=== PATIENT | male | born 1985 | race African-American/Black ===

== ENCOUNTER 2020-09-24 15:12 | Observation (INO) | payer SELFPAY ==
[2020-09-24] VITALS (24 sets, daily range): BP systolic 129–207; BP diastolic 90–134; PULSE 64–118; RESP 12–31; TEMP 36.6–37.2; O2SAT 96–100; BMI 22.5
--- NOTE | ~2020-09-24 | XR_ITS ---
EXAMINATION: XR chest 1V portable EXAM DATE: 09/24/2020 15:52 INDICATION: Weakness. TECHNIQUE: Portable AP frontal chest x-ray was obtained. There is no prior study for comparison. FINDINGS: The lungs are clear. There are no pleural effusions. The cardiomediastinal silhouette is within normal limits. There is no pneumothorax suspected. The bones and soft tissues are unremarkab le. IMPRESSION: Normal chest x-ray exam. Reviewed, dictated and finalized at location A. IMPRESSION: Normal chest x-ray exam.
--- NOTE | ~2020-09-24 | CT_ITS ---
EXAMINATION: CT abdomen pelvis wo con EXAM DATE: 09/24/2020 17:02 INDICATION: Nausea and vomiting. TECHNIQUE: Spiral CT of the abdomen and pelvis was performed without contrast. Axial, coronal and sag ittal images were reviewed. The dose-length product (DLP) for this examination was 540.78 mGy-cm. T he exposure was tailored according to patient size (auto mA exposure control), and iterative reconstr uction (ASIR) was used as additional dose reduction technique. There is no prior study for compariso n. FINDINGS: There is no nephrolithiasis or hydronephrosis. There is a 1.4 cm left renal cyst. The prost ate is unremarkable. The bladder is unremarkable. The liver, spleen, adrenal glands and pancreas ar e unremarkable. Gallbladder is unremarkable. No biliary obstruction. There is no retroperitoneal o r pelvic lymphadenopathy. The appendix is normal. The stomach and small bowel are unremarkable. There is expected amount of c olonic stool. No free intraperitoneal gas. The heart is normal in size. There are no pericardial or pleural effusions. The lung bases are unremarkable. There are no osteoblastic or osteolytic les ions identified. IMPRESSION: No acute intra-abdominal or pelvic findings. Reviewed, dictated and finalized at location G.
--- NOTE | 2020-09-24 15:16 | ECG_ITS ---
Measurements Intervals [place] Rate: 105 P: 70 CO: 118 QRS: 66 QRSD: 79 T: 64 QT: 336 QTc: 446 Interpretive Statements SINUS TACHYCARDIA WITH SHORT CO INTERVAL POSSIBLE RIGHT ATRIAL ENLARGEMENT LEFT ATRIAL ENLARGEMENT BORDERLINE ECG Electronically Signed On 09-24-2020 21:46:38 CDT by Chacho Jarrell D.O.
--- NOTE | 2020-09-24 15:22 | ED.GENADULT ---
HPI - General Adult General Chief complaint: Unspecified Stated complaint: heroin withdrawl Source: patient, EMS and RN notes reviewed Mode of arrival: EMS Limitations: clinical condition History of Present Illness HPI narrative: Patient is a 35-year-old male who presents per EMS from a hotel where he is staying patient notes that he has not been using heroin for the last 5 days patient has a hospital band stating that he was at a hospital on the second patient lives by himself in a hotel he is refusing to answer all questions but cannot deliberately move and answer questions when he chooses to patient notes generalized aching notes that he has had some vomiting as well as cough and upper respiratory symptoms patient again notes history of IV drug abuse and states that he has not used in the last 5 days Related Data Home Medications Medication Instructions Recorded Confirmed No Home Medications 09/24/20 09/24/20 Allergies Allergy/AdvReac Type Severity Reaction Status Date / Time No Known Allergies Allergy Verified 09/24/20 15:13 Review of Systems Review of Systems: All systems reviewed & are unremarkable except as noted in HPI and below PMFSH Social History Social History (Updated 09/24/20 @ 15:24 by Dennis Maciel PA-C) Substance use type: heroin Gender identity (if verbalized by the patient): Male Exam Narrative: Exam Narrative: GENERAL: Ill-appearing, well-nourished, and in no acute distress. HEAD: Normocephalic, atraumatic. EYES: PERRLA and EOMI. ENT: Nares clear, no rhinorrhea or epistaxis. Mucous membranes moist. CHEST: Clear to auscultation. No respiratory distress. No wheezes rales or rhonchi HEART: Regular rate and rhythm. No murmur heard. Normal peripheral pulses. ABDOMEN: Soft, nontender, nondistended EXTREMITIES: Normal range of motion. No edema. SKIN: Warm, dry, no rash. NEURO: No focal deficits. Alert and oriented x3. Cranial nerves II through XII grossly intact PSYCH: Flat affect Course Course Emergency Course: Patient will be placed in hospital for dehydration he is resting in the room no distress given 2 L in the ER patient clinically appears to be primarily dehydrated no other signs of infection or concerning findings at this time Consultations Consultation #1: Discussed case with hospitalist who has agreed to accept the patient Date: 09/24/20 Time: 17:24 Vital Signs Vital signs: Vital Signs Temperature 98.1 F 09/24/20 15:08 Pulse Rate 111 H 09/24/20 15:08 Respiratory Rate 20 09/24/20 15:08 Blood Pressure 129/114 H 09/24/20 15:08 Pulse Oximetry 100 09/24/20 15:08 Temperature 98.1 F 09/24/20 15:08 Pulse Rate 65 09/24/20 17:10 Respiratory Rate 25 H 09/24/20 17:10 Blood Pressure 207/131 H 09/24/20 17:10 Pulse Oximetry 100 09/24/20 17:10 Medical Decision Making MDM Narrative Medical decision making narrative: Patient presented with what appears to be dehydration notes that he has had some vomiting which could be the possible etiology he is otherwise in the room in no distress and felt appropriate for inpatient therapy for hydration Vital Signs Vital Signs: Vital Signs Temperature 98.1 F 09/24/20 15:08 Pulse Rate 111 H 09/24/20 15:08 Respiratory Rate 20 09/24/20 15:08 Blood Pressure 129/114 H 09/24/20 15:08 Pulse Oximetry 100 09/24/20 15:08 Temperature 98.1 F 09/24/20 15:08 Pulse Rate 65 09/24/20 17:10 Respiratory Rate 25 H 09/24/20 17:10 Blood Pressure 207/131 H 09/24/20 17:10 Pulse Oximetry 100 09/24/20 17:10 Lab Data Result diagrams: 09/24/20 16:17 09/24/20 16:17 Labs: Lab Results 09/24/20 09/24/20 09/24/20 Range/Units 15:30 16:17 16:17 WBC (4.5-10.0) K/mm3 RBC (4.6-6.20) M/mm3 Hgb (14.0-18.0) g/dL Hct (42.0-52.0) % MCV (80-100) fl MCH (26-34) pg MCHC (32-36) g/dl RDW (11.5-14.5) % Plt Count (150-375) k/mm3 MPV
[2020-09-24 15:35] LABS: Alveolar/Arterial O2 Gradient 21.1 mmHg; Base Excess ABG 7.6 mEq/l (+/-2.0); Carboxyhemoglobin 0.3 % THb (0-2.0); Fractional Inspired Oxygen 21 %; HCO3 ABG 30.3 mEq/l (22.0-26.0); Methemoglobin ABG 0.9 %THb (0-1.5); Oxygen Content ABG 27.5 %vol (16.0-22.0); Oxygen Saturation ABG 97.4 % (95.0-100.0); Oxyhemoglobin 95.6 % THb (90.0-100.0); PCO2 ABG 36.2 mmHg (35.0-45.0); PO2 ABG 85.3 mmHg (80.0-100.0); PO2 FiO2 Ratio Arterial Blood 4.06 %; Reduced Hemoglobin 3.2 %THb (0-5.0); Total Hemoglobin 20.5 g/dL (12.0-18.0)
[2020-09-24 15:36] LABS: Device ROOM AIR; Modified Allen's Test Pass; Site Drawn LEFT RADIAL
[2020-09-24] MEDS: SODIUM CHLORIDE 0.9% IV 1,000 ML 999 ML IV CONT (16:27)
[2020-09-24 16:32] LABS: Basophils Percent Auto 0.2 % (0.2-1.2); Hematocrit 59.3 % (42.0-52.0); Immature Granulocyte Absolute 0.05 K/mm3 (0.00-0.031); Immature Granulocyte Percent A 0.4 % (0-0.5); Lymphocytes Absolute Auto 1.47 K/mm3 (0.9-3.2); Lymphocytes Percent Auto 10.4 % (18.3-44.2); Mean Corpuscular HGB Conc 33.7 g/dl (32-36); Mean Corpuscular Hemoglobin 30.9 pg (26-34); Mean Corpuscular Volume 91.5 fl (80-100); Mean Platelet Volume 10.7 fl (7.4-10.4); Monocytes Absolute Auto 1.4 K/mm3 (0.1-0.6); Monocytes Percent Auto 9.7 % (2.6-8.5); Neutrophils Absolute Auto 11.2 K/mm3 (1.3-6.7); Neutrophils Percent Auto 79.3 % (45.5-73.1); Platelet Count Result 326 k/mm3 (150-375); Red Blood Count 6.48 M/mm3 (4.6-6.20); Red Cell Distribution Width 13.2 % (11.5-14.5); White Blood Count 14.1 K/mm3 (4.5-10.0)
[2020-09-24 16:35] LABS: Add Urine Microscopic? YES; Appearance Urine Clear (Clear); Bilirubin Urine Negative (Negative); Blood Urine Negative (Negative); Color Urine Yellow (Yellow); Glucose Urine UA Negative (Negative); Ketones Urine Negative (Negative); Leukocyte Esterase Ur Negative LEU/UL (Negative); Mucus Urine Rare /lpf; Nitrate Urine Negative (Negative); Protein Urine 2+ mg/dL (Negative); RBC Urine 0-2 /hpf (0-2); Squamous Epithelial Cell Urine Rare /hpf (Few); Urobilinogen Urine Negative mg/dL (<2.0); WBC Urine 0-3 /hpf
[2020-09-24 16:41] LABS: Prothrombin Time 13.3 Seconds (11.1-14.7)
[2020-09-24 16:42] LABS: Lactic Acid Reflex 2.2 mmol/L (0.7-2.1)
[2020-09-24 16:42] LABS: Partial Thromboplastin Time 30.6 SECONDS (22.3-36.8)
[2020-09-24 16:43] LABS: Alanine Aminotransferase 37 U/L (4-50); Alkaline Phosphatase 103 U/L (38-126); Anion Gap 16 mmol/L (8-16); Aspartate Amino Transferase 44 U/L (17-59); Bilirubin,Total 1.5 mg/dL (0.2-1.3); Blood Urea Nitrogen 55 mg/dL (9-20); CRP < 0.5 mg/dL (<1.0); Calcium 10.2 mg/dL (8.4-10.2); Carbon Dioxide 29 mmol/L (22-30); Chloride 89 mmol/L (98-107); Creatine Kinase 370 U/L (55-170); Estimated CRCL calculation 54 ml/min; Estimated Glomerular Filt Rate 47; Glucose 152 mg/dL (75-110); Lipase 43 U/L (23-300); Magnesium 2.7 mg/dL (1.6-2.3); Phosphorus 5.4 mg/dL (2.5-4.5); Potassium 4.1 mmol/L (3.4-5.0); Sodium 134 mmol/L (137-145)
[2020-09-24 16:51] LABS: Amphetamine Screen Urine Negative (Negative); Barbiturate Screen Urine Negative (Negative); Benzodiazepines Screen Urine Negative (Negative); Cannabinoid Screen Urine Negative (Negative); Cocaine Screen Urine Negative (Negative); Methadone Screen Urine Negative (Negative); Opiate Screen Urine Negative (Negative); Phencyclidine Screen Urine Negative (Negative)
[2020-09-24] MEDS: LACTATED RINGERS 1,000 ML 999 ML IV CONT (17:09)
[2020-09-24] MEDS: PANTOPRAZOLE SODIUM IV 40 MG VIAL IV PUSH (17:09)
[2020-09-24] MEDS: hydrALAZINE HCL 20 MG/ML VIAL 10 MG IV PUSH (17:10)
--- NOTE | 2020-09-24 19:08 | PC.NURSE ---
assumed care of pt at this time. Report from RINA Pugh. Keaton attempted to call report on Patient, floor states to wait until 15 after 7 for report.
[2020-09-24 19:29] LABS: Reflex Lactic Acid Yes or No Add Lactic
--- NOTE | 2020-09-24 19:58 | ADMGEN ---
This patient, Satnam Cordova, was admitted to Medical Room 240-01. Patient/family oriented to hospital policies and general routines including ID bracelet, bed and alarms, visiting hours, pain management, procedures, bathroom and other care routines, personal items, smoking policy, room service/diet, and visiting hours. Information on how to activate the Rapid Response Team has been discussed. Patient/Family are encouraged to report perceived risks to care and to ask questions if they do not understand what they are told or what they should do.
[2020-09-24] MEDS: LACTATED RINGERS 1,000 ML 125 ML IV CONT (20:43)
--- NOTE | 2020-09-24 20:49 | PM.IMHP ---
H&P: HPI History of Present Illness Date/Time: 09/24/20 20:49Thiyana is a 35-year-old male patient who has a history of heroin use. The patient is homeless and staying in hotel. The patient stated that he has been trying to overdose on heroin and he wants to commit suicide and he wants to . The patient is suicidal. EMS was called to the hotel with the patient was staying because he has been staying in his hotel and not answering questions. The patient has nausea and vomiting. He stated the last time he used heroin was last Friday. His white counts noted to be 14.1. Hemoglobin 20.0 hematocrit 59.3. His pH is 7.540. His lactic was 2.2 it is now 1.0. Magnesium 2.7. Phosphorus 5.4. Total bilirubin 1.5. Glucose 152. Creatinine 1.7. His tox screen was all negative. The patient was given IV fluids and Apresoline as well as Protonix. The patient is admitted to medical-surgical observation however the patient admitted that he was trying to commit suicide and wants to harm himself. So will have to move him to the intensive care unit in place him on suicide watch. The patient is being admitted to observation on the date of service of 09/24/2020. Chief Complaint: heroin overdose Review of Systems Review of Systems: All systems reviewed & are unremarkable except as noted in HPI and below Constitutional: Constitutional: Reports as per HPI and Reports no additional constitutional complaints Eyes: Eyes: Reports as per HPI and Reports no additional eye complaints ENT: Reports system reviewed and no additional complaints, except as documented and Reports Normal hearing present Cardiovascular: Cardiovascular: Reports no additional cardiovascular complaints Respiratory: Respiratory: Reports no additional respiratory complaints and Reports no additional respiratory complaints Gastrointestinal: Gastrointestinal: Reports as per HPI and Reports no additional gastrointestinal complaints Musculoskeletal: Musculoskeletal: Reports no additional musculoskeletal complaints Integumentary/Breasts: Skin/Breast: Reports system reviewed and no additional complaints, except as docu and Reports as per HPI Neurologic: Reports system reviewed and no additional complaints, except as documented, Reports as per HPI and Reports Normal hearing present Psychiatric: Psychiatric: Reports no additional psychiatric complaints and Reports as per HPI Endocrine: Endocrine: Reports no additional endocrine complaints Hematologic/Lymphatic: Hematologic/Lymphatic: Reports no additional hematologic/lymphatic complaints Allergic/Immunologic: Allergic/Immunologic: Reports no additional allergic/immunologic complaints [facility] Past Medical History Medical History (Updated 09/24/20 @ 21:06 by Marcela Chin NP) Heroin use Surgical History Surgical History (Updated 09/24/20 @ 21:01 by Marcela Chin NP) No pertinent past surgical history Family History Family History (Updated 09/24/20 @ 20:59 by Marcela Chin NP) Unknown Family history unknown Social History Social History (Updated 09/24/20 @ 21:03 by Marcela Chin NP) Social History: the patient told me that he lives home alone. he toes me that he has no children. He is a full code. He states that he has no family. Smoking packs per day: 1 Smoking cigarettes per day: 20.0 Smoking status: Current every day smoker Tobacco type: cigarettes Substance use: never Substance use type: other Other substance usage details: FENTANYL Last use: 5 DAYS AGO Gender identity (if verbalized by the patient): Male Spiritual care concerns: No Meds Home Medications and Allergies Home Medications Medication Instructions Recorded Confirmed Type No Home Medications 09/24/20 09/24/20 History Allergies Allergy/AdvReac Type Severity Reaction Status Date / Time No Known Allergies Allergy Verified 09/24/20 15:13 Vital Signs Vital Signs - 24 hr 09/24/20 15:08
--- NOTE | 2020-09-24 20:52 | PC.NURSE ---
2034 informed sandra trinidad php lamp developer of high risk on aquilla suicide risk assessment. states she is on her way to see patient. nursing underground supervisor informed.
--- NOTE | 2020-09-24 20:53 | PC.NURSE ---
2045 green house manager placed in room. icu informed of transfer.
[2020-09-24] MEDS: FAMOTIDINE 20 MG/2 ML VIAL IV PUSH (21:21)
[2020-09-24] MEDS: cloNIDine HCL 0.1 MG TABLET PO (21:24)
--- NOTE | 2020-09-24 21:25 | PC.NURSE ---
Report received from RINA Lambert.
--- NOTE | 2020-09-24 21:40 | PC.NURSE ---
2114 PATIENTS GRANDMOTHER, MRS. HERMOSILLO, CALLED UNIT TO ASK ABOUT HER GRANDSON, OBTAINED PERMISSION FROM PATIENT TO SPEAK TO GRANDMOTHER. UPDATE GIVEN, CONTACT NUMBER RECIEVED AND PLACED IN CHART
--- NOTE | 2020-09-24 21:41 | PC.NURSE ---
2119 REPORT GIVEN TO LÁZARO MILAN RN
--- NOTE | 2020-09-24 21:42 | PC.NURSE ---
2135 PATIENT TRANSFERRED TO ICU 7 PER BED. SITTER REMAINS AT BEDSIDE, PATIENT REMAINS WITHDRAWN.
[2020-09-25] VITALS (7 sets, daily range): BP systolic 126–157; BP diastolic 75–96; PULSE 61–90; RESP 13–28; TEMP 36.8–37.1; O2SAT 97–100
[2020-09-25] MEDS: hydrALAZINE HCL 20 MG/ML VIAL 10 MG IV PUSH (00:20)
[2020-09-25] MEDS: LACTATED RINGERS 1,000 ML 125 ML IV CONT ×3 (04:36→20:25)
--- NOTE | 2020-09-25 08:29 | PM.IMPN ---
Progress Note: A&P Assessment and Plan (1) Suicide ideation: Code(s): R45.851 - Suicidal ideations Status: Acute Assessment and Plan: The patient expressing suicidal thoughts and was moved to ICU per protocol. He remains stable. Continue suicide precautions. Will need Crisis to see. (2) Vomiting: Code(s): R11.10 - Vomiting, unspecified Status: Acute Assessment and Plan: Patient presents with n/v. Suspect related to withdrawal symptoms. No further nausea. Resume diet and monitor. Continue with Zofran prn. Continue scheduled Pepcid. (3) Opioid withdrawal: Code(s): F11.23 - Opioid dependence with withdrawal Status: Acute Assessment and Plan: No evidence of withdrawal symptoms currently. Will follow clinically. Continue Clonidine for now. Ativan available as needed but has not reeded this. (4) Acute kidney injury: Code(s): N17.9 - Acute kidney failure, unspecified Status: Acute Assessment and Plan: Cr 1.7 on admission. TCK 370 but not felt the etiology of the FREDIS. Most likely due to dehydration. Labs pending today. Continue with IV fluids. Start diet BUN 5 with Cr 1.4 now. TP dropped from 11 to 7. Continue IV fluids. (5) Acute dehydration: Code(s): E86.0 - Dehydration Status: Acute Assessment and Plan: As above. Continue with IV fluids. (6) Heroin use: Code(s): F11.90 - Opioid use, unspecified, uncomplicated Status: Chronic Assessment and Plan: Patient has hx of Heroin use. last use was now 6 days ago. Will continue to treat for withdrawal. Check HIV and Hepatitis panel. Otherwise, treatment as above. (7) Polycythemia: Code(s): D75.1 - Secondary polycythemia Status: Acute Assessment and Plan: Hgb 20on admisison but felt related to the dehydration. Follow. Repeat Hgb 16 with IV fluids. (8) Tobacco abuse: Code(s): Z72.0 - Tobacco use Status: Acute Assessment and Plan: Unable to provide education at this time. (9) DVT prophylaxis: Code(s): Z29.9 - Encounter for prophylactic measures, unspecified Status: Acute Assessment and Plan: SCDs Subjective Date/time seen: 09/25/20 08:29 Interval history: 35yo male with hx of heroin abuse here for dehydration, FREDIS and suicidal ideation. Assuming care. Chart reviewed. Patient deneis any further nausea or vomiting. Feels thirsty. No CP but complains of abominal pain. Overall, ROS was limited due to patient's spotty participation. Exam Narrative: Exam Narrative: AF 98.7 142/87 61 24 98% ra Gen - NARD lying flat in bed Chest - CTA bilaterally, nml RR CV - RRR S1/S2. telemetry showing no significant dysrhythmias Abd - Soft, NT/ND, Positive BS Ext - No pedal edema. 2+ DP pulses bilaterally Psych - Nml mood but odd affect Skin - Warm and dry Objective Data Vital Signs Vital Signs: Vital Signs - 24 hr 09/24/20 15:08 09/24/20 15:13 09/24/20 16:48 Temperature 98.1 F Pulse Rate 111 H 118 H 66 Respiratory Rate 20 Blood Pressure 129/114 H Pulse Oximetry 100 100 09/24/20 17:04 09/24/20 17:05 09/24/20 17:10 Temperature Pulse Rate 70 64 65 Respiratory Rate 28 H 24 H 23 H Blood Pressure 169/134 H 207/131 H Pulse Oximetry 100 98 100 09/24/20 17:15 09/24/20 17:16 09/24/20 17:30 Temperature Pulse Rate 68 83 Respiratory Rate 25 H 26 H 22 H Blood Pressure 203/124 H 160/112 H Pulse Oximetry 100 99 09/24/20 17:31 09/24/20 17:45 09/24/20 17:46 Temperature Pulse Rate 87 84 72 Respiratory Rate 12 15 29 H Blood Pressure 192/122 H Pulse Oximetry 100 100 100 09/24/20 18:00 09/24/20 18:01 09/24/20 18:15 Temperature Pulse Rate 72 68 78 Respiratory Rate 25 H 31 H 20 Blood Pressure 192/120 H 174/107 H Pulse Oximetry 100 100 100 09/24/20 18:16 09/24/20 19:06 09/24/20 19:49 Temperature Pu
[2020-09-25] MEDS: cloNIDine HCL 0.1 MG TABLET PO ×2 (08:34→20:24)
[2020-09-25] MEDS: FAMOTIDINE 20 MG/2 ML VIAL IV PUSH ×2 (08:35→20:24)
[2020-09-25 10:33] LABS: Basophils Percent Auto 0.1 % (0.2-1.2); Eosinophils Percent Auto 0.1 % (0-4.4); Immature Granulocyte Absolute 0.04 K/mm3 (0.00-0.031); Immature Granulocyte Percent A 0.3 % (0-0.5); Lymphocytes Absolute Auto 2.11 K/mm3 (0.9-3.2); Lymphocytes Percent Auto 15.1 % (18.3-44.2); Mean Corpuscular HGB Conc 33.3 g/dl (32-36); Mean Corpuscular Hemoglobin 31.1 pg (26-34); Mean Corpuscular Volume 93.4 fl (80-100); Mean Platelet Volume 10.5 fl (7.4-10.4); Monocytes Absolute Auto 1.7 K/mm3 (0.1-0.6); Monocytes Percent Auto 12.2 % (2.6-8.5); Neutrophils Absolute Auto 10.1 K/mm3 (1.3-6.7); Neutrophils Percent Auto 72.2 % (45.5-73.1); Platelet Count Result 263 k/mm3 (150-375); Red Blood Count 5.14 M/mm3 (4.6-6.20); Red Cell Distribution Width 12.6 % (11.5-14.5)
[2020-09-25 10:46] LABS: Alanine Aminotransferase 31 U/L (4-50); Albumin Level 3.7 g/dL (3.5-5.1); Alkaline Phosphatase 63 U/L (38-126); Anion Gap 7 mmol/L (8-16); Aspartate Amino Transferase 44 U/L (17-59); Bilirubin,Total 1.4 mg/dL (0.2-1.3); Blood Urea Nitrogen 35 mg/dL (9-20); Calcium 8.8 mg/dL (8.4-10.2); Carbon Dioxide 30 mmol/L (22-30); Chloride 99 mmol/L (98-107); Estimated CRCL calculation 69 ml/min; Estimated Glomerular Filt Rate > 60; Glucose 122 mg/dL (75-110); Potassium 4.1 mmol/L (3.4-5.0); Sodium 136 mmol/L (137-145)
[2020-09-25 11:23] LABS: HIV 1/2 Ab P24 Ag Result Negative (Negative)
[2020-09-25 11:35] LABS: Hepatitis B Surface Antigen Negative (Negative)
[2020-09-25 11:46] LABS: Hepatitis B Core IgM Result Negative (Negative)
[2020-09-25 11:53] LABS: Hepatitis B Surface Anti Res Negative
[2020-09-25 12:13] LABS: Hepatitis C Virus Antibody Reactive (Negative)
--- NOTE | 2020-09-25 22:14 | PC.NURSE ---
2000 patient denies suicidal thoughts at this time I'm not suicidal. I said it to get better treatment at the hospital. If anything I'm homicidal.
--- NOTE | 2020-09-25 22:25 | PC.NURSE ---
2044 Patient verbalizing desire to not live the life that he had been living. Voiced the desire to live without drugs and hurting others. Emotional support provided.
--- NOTE | 2020-09-25 22:26 | PC.NURSE ---
2056 mother Priscilla called from [facility]. Spoke with patient and provided emotional support.
[2020-09-26] VITALS: BP 115/60; PULSE 62; RESP 17; O2SAT 97
[2020-09-26] MEDS: LACTATED RINGERS 1,000 ML 125 ML IV CONT (04:30)
[2020-09-26 05:54] LABS: Basophils Percent Auto 0.2 % (0.2-1.2); Eosinophils Absolute Auto 0.1 K/mm3 (0-0.3); Eosinophils Percent Auto 1.3 % (0-4.4); Hematocrit 39.4 % (42.0-52.0); Hemoglobin 12.8 g/dL (14.0-18.0); Immature Granulocyte Absolute 0.05 K/mm3 (0.00-0.031); Immature Granulocyte Percent A 0.5 % (0-0.5); Lymphocytes Absolute Auto 3.38 K/mm3 (0.9-3.2); Mean Corpuscular HGB Conc 32.5 g/dl (32-36); Mean Corpuscular Hemoglobin 31.1 pg (26-34); Mean Corpuscular Volume 95.6 fl (80-100); Mean Platelet Volume 11.1 fl (7.4-10.4); Monocytes Percent Auto 10.4 % (2.6-8.5); Neutrophils Absolute Auto 4.6 K/mm3 (1.3-6.7); Neutrophils Percent Auto 50.6 % (45.5-73.1); Platelet Count Result 203 k/mm3 (150-375); Red Blood Count 4.12 M/mm3 (4.6-6.20); Red Cell Distribution Width 12.2 % (11.5-14.5); White Blood Count 9.1 K/mm3 (4.5-10.0)
[2020-09-26 06:03] LABS: Alanine Aminotransferase 33 U/L (4-50); Albumin Level 3.2 g/dL (3.5-5.1); Alkaline Phosphatase 44 U/L (38-126); Anion Gap 5 mmol/L (8-16); Aspartate Amino Transferase 43 U/L (17-59); Bilirubin,Total 1.3 mg/dL (0.2-1.3); Blood Urea Nitrogen 26 mg/dL (9-20); Calcium 8.4 mg/dL (8.4-10.2); Carbon Dioxide 27 mmol/L (22-30); Chloride 101 mmol/L (98-107); Estimated CRCL calculation 81 ml/min; Estimated Glomerular Filt Rate > 60; Glucose 103 mg/dL (75-110); Magnesium 2.1 mg/dL (1.6-2.3); Phosphorus 2.6 mg/dL (2.5-4.5); Sodium 133 mmol/L (137-145)
[2020-09-26 07:59] VITALS: BP 105/55; PULSE 54; RESP 18; TEMP 36.9; O2SAT 98
[2020-09-26] MEDS: FAMOTIDINE 20 MG/2 ML VIAL IV PUSH (08:14)
--- NOTE | 2020-09-26 14:20 | PM.DS ---
DS: Admitting Diagnosis Admitting Diagnosis Admitting Diagnosis: Nausea and vomiting DS: Discharge Diagnosis Discharge Diagnosis (1) Suicide ideation: Code(s): R45.851 - Suicidal ideations Status: Acute (2) Vomiting: Code(s): R11.10 - Vomiting, unspecified Status: Acute (3) Opioid withdrawal: Code(s): F11.23 - Opioid dependence with withdrawal Status: Acute (4) Acute kidney injury: Code(s): N17.9 - Acute kidney failure, unspecified Status: Acute (5) Acute dehydration: Code(s): E86.0 - Dehydration Status: Acute (6) Heroin use: Code(s): F11.90 - Opioid use, unspecified, uncomplicated Status: Chronic (7) Polycythemia: Code(s): D75.1 - Secondary polycythemia Status: Acute (8) Tobacco abuse: Code(s): Z72.0 - Tobacco use Status: Acute (9) HCV antibody positive: Code(s): R76.8 - Other specified abnormal immunological findings in serum Status: Acute DS: Summary Hospital Course Reason for hospitalization: 35yo male with hx of heroin abuse here for dehydration, FREDIS and suicidal ideation. Hospital Course: Patient presents with n/v. Suspect related to opioid withdrawal symptoms. He was admitted and monitored. Ativan available as needed but did not require this. BP was elevated as well so he was started on Clonidine with good results. BP became better controlled and there was no further nausea. He was started on diet and did well with this; he ate only small amounts. Zofran available prn. We continued the scheduled Pepcid. After admission, the patient expressing suicidal thoughts and was moved to ICU per protocol. He remained stable. Suicide precautions ordered. When it was felt that he was stable for discharge, Crisis called and safety contract completed. He did have FREDIS with Cr 1.7 on admission. TCK 370 but not felt the etiology of the FREDIS. Most likely due to dehydration. Treated with IV fluids. Cr down to 1.2. Patient has hx of Heroin use. HIV negative. He has HepC Ab positive but viral load pending. He knows he has HepC but has not had treatment yet. He was educated about the benefits of abstaining from drug use and tobacco use. Hgb 20 on admission but felt related to the dehydration; repeat Hgb 16 with IV fluids. Patient overall did well and was able to be discharged on 09/26/20. He was encouraged to follow up with drug rehab and to obtain [place] Medicaid (he does not live in [place]). All questions answered. Status at Discharge Cognitive/behavioral status at discharge: stable Time Spent with Patient Time attestation: Total time spent providing and/or coordinating discharge services: 35 minutes Time spent: Greater than 30 minutes Exam Narrative: Exam Narrative: AF 98.4 105/55 54 18 98% ra Gen - NARD lying flat in bed Chest - CTA bilaterally, nml RR CV - RRR S1/S2 Abd - Soft, NT/ND, Positive BS Ext - No pedal edema Psych - calm. allows for exam. does answer questions better today but looks away from the examiner and keepsw his eyes closed Skin - Warm and dry DS: Data Data Completed and Pending Labs on day of discharge: Labs from last 24 hours 09/26/20 09/26/20 05:04 05:04 WBC 9.1 RBC 4.12 L Hgb 12.8 L D Hct 39.4 L MCV 95.6 MCH 31.1 MCHC 32.5 RDW 12.2 Plt Count 203 MPV 11.1 H Immature Gran % (Auto) 0.5 Neut % (Auto) 50.6 Lymph % (Auto) 37.0 Wilson % (Auto) 10.4 H Eos % (Auto) 1.3 Baso % (Auto) 0.2 Lymph # (Auto) 3.38 H Wilson # (Auto) 1.0 H Eos # (Auto) 0.1 Baso # (Auto) 0.0 Abs Immat Gran (auto) 0.05 H Absolute Neuts (auto) 4.6 Absolute Nucleated RBC 0.0 Nucleated RBC % 0.0 Sodium 133 L Potassium 4.0 Chloride 101 Carbon Dioxide 27 Anion Gap 5 L BUN 26 H Creatinine 1.20 Estim Creat Clear Calc 81 Estimated GFR > 60 Glucose 103 Calcium 8.4 Phosphorus 2.6 Magnesium 2.1 Total Bilirubin 1.3 A
[2020-09-27 02:48] LABS: Hepatitis B Core Ab Total Nonreactive (Nonreactive)
--- NOTE | 2020-09-27 10:34 | PC.NURSE ---
Hpeatitis B core Ab is negative.Dr. Darrell gonzalez.
[2020-09-27 12:58] LABS: Hepatitis C RNA, Quant PCR 364000 IU/mL
--- NOTE | 2020-10-06 07:29 | PC.NURSE ---
Patient has no PCP to forward labs too. Pt is transient and lives in motels.
== END 2020-09-26 16:45 | disposition home or self-care (01) ==
LOC: ANHED 17:25 → ANHICU 09-25 00:16 → ANH2MED 09-27 15:16 → ANHICU 09-27 15:16
PROVIDERS: Emergency Medicine Emergency Medical Services; Admitting Provider Internal Medicine; Emergency Provider Emergency Medicine; Visit Provider Internal Medicine
DX: T40.1X2A Poisoning by heroin, intentional self-harm, initial encounter (principal); E86.0 Dehydration; N17.9 Acute kidney failure, unspecified; D75.1 Secondary polycythemia; F11.23 Opioid dependence with withdrawal; F17.210 Nicotine dependence, cigarettes, uncomplicated; R45.851 Suicidal ideations; R11.0 Nausea
CPT/HCPCS: 36415; 36600; 71045; 74176; 80053; 80307; 81001; 82375; 82550; 82805; 83050; 83605; 83690; 83735; 84100; 85025; 85610; 85730; 86140; 86703; 86704; 86705; 86706; 86803; 87040; 87340; 87522; 93005; 96361; 96374; 96375; 96376; 99285; A9270; C9113; G0378; G0379; G0432; J0360; J7030; J7120